=== PATIENT | male | born 1970 | race Caucasian/White ===

== ENCOUNTER 2022-05-13 19:37 | Emergency (ER) | payer OTHER ==
[2022-05-13 19:53] LABS: BASOPHIL 0.7 % (0-2); EOSINOPHIL 1.4 % (0-5); LYMPHOCYTE 27.5 % (15-48); MCH 29.4 pg (25.0-31.0); MCHC 34.2 g/dL (32.0-36.0); MONOCYTE 8.7 % (0-12); MPV 10.1 fL (6.0-9.5); NEUTROPHIL 60.7 % (41-80); NRBC 0; PLT 259 K/uL (150-400); RBC 4.42 M/uL (4.70-6.00); RDW 12.8 % (11.5-14.0); WBC 6.9 K/uL (4.0-10.5)
[2022-05-13 20:01] LABS: INR 1.07 (0.9-1.2); PROTHROMBIN TIME 13.6 SECONDS (11.9-13.9); PTT 24.7 SECONDS (24.9-34.6)
[2022-05-13 20:09] LABS: ALBUMIN 3.3 g/dL (3.4-5.0); BILIRUBIN - TOTAL 0.3 mg/dL (0.2-1.0); BUN/CREAT RATIO (CALC) 13.9 RATIO; CREATININE 0.79 mg/dL (0.67-1.17); GLOBULIN (CALCULATION) 3.7 g/dL; POTASSIUM 3.8 mmol/L (3.5-5.1)
[2022-05-13] MEDS ORDERED: KEFLEX250 MG PO (22:38)
[2022-05-13] MEDS ORDERED: NORCO 5-325 TA1 EACH PO (22:38)
== END 2022-05-13 22:49 | disposition home or self-care (01) ==
LOC: FER 19:37
PROVIDERS: Emergency Medicine
DX: S02.2XXA Fracture of nasal bones, initial encounter for closed fracture (principal); S01.111A Laceration without foreign body of right eyelid and periocular area, initial encounter; R55 Syncope and collapse; I10 Essential (primary) hypertension; Z79.899 Other long term (current) drug therapy; W19.XXXA Unspecified fall, initial encounter; Y92.009 Unspecified place in unspecified non-institutional (private) residence as the place of occurrence of the external cause
CPT/HCPCS: 36415; 70450; 70486; 71045; 80053; 84484; 85025; 85610; 85730; 93005; 96360; J7030